=== PATIENT | female | born 1955 | race African-American/Black ===

== ENCOUNTER 2023-12-25 12:05 | Emergency (ER) | payer BC, MEDICAID ==
[~2023-12-25] VITALS: Ht 167.6 cm; Wt 82.0 kg
[~2023-12-25 12:05] MED LIST: ALBU05; BACL-141; FURO-152; HYDR25SU11; IPRA21SP2; OMEP20TA23
[2023-12-25 12:11] VITALS: O2SAT 99
[2023-12-25] MEDS: SODIUM CHLORIDE 0.9% 1,000 ML IV ONE (12:52)
[2023-12-25 12:53] LABS: BASOPHILS % 0.8 % (0.0-2.0); EOSINOPHILS % 6.7 % (0.0-5.0); HEMATOCRIT. 38.3 % (36.0-48.0); HEMOGLOBIN. 12.2 g/dL (12.0-16.0); LYMPHOCYTES % 33.8 % (20.0-50.0); MEAN CORPUSCULAR HEMOGLOBIN 27.1 pg (28.0-32.0); MEAN CORPUSCULAR HGB CONC 31.9 g/dL (31.0-37.0); MEAN CORPUSCULAR VOLUME 85.1 fL (81.0-99.0); MEAN PLATELET VOLUME 7.9 fl (7.4-10.4); MONOCYTES % 8.6 % (2.0-8.0); NEUTROPHILS % 50.1 % (40.0-76.0); PLATELET 280 x1000/uL (130-400); RED CELL DISTRIBUTION WIDTH 13.3 % (11.6-14.6); WHITE BLOOD COUNT 4.9 x1000/uL (4.5-11.0)
[2023-12-25 12:59] LABS: CHLORIDE 108 mEq/L (98-107); SODIUM 141 mEq/L (136-145)
[2023-12-25 13:00] LABS: CARBON DIOXIDE 25 mEq/L (21-32)
[2023-12-25 13:01] LABS: CALCIUM 9.8 mg/dL (8.7-10.4)
[2023-12-25 13:05] LABS: CREATININE 1.3 mg/dL (0.6-1.0); GLUCOSE 91 mg/dL (70-105)
[2023-12-25 13:06] LABS: UREA NITROGEN BLOOD 28 mg/dL (9-23)
[2023-12-25 13:07] LABS: ALANINE AMINOTRANSFERASE 10 IU/L (10-49); ALBUMIN 4.5 g/dL (3.2-4.8); ASPARTATE AMINOTRANSFERASE 16 IU/L (<34); TROPONIN I HIGH SENSITIVITY 30 ng/L (3.0-34)
[2023-12-25 13:08] LABS: BILIRUBIN TOTAL 0.4 mg/dL (0.1-1.0); PROTEIN TOTAL 8.2 g/dL (6.0-8.3)
[2023-12-25 15:30] VITALS: BP 155/57; PULSE 66; RESP 16; TEMP 97.5
[2023-12-25] MEDS ORDERED: DEXT15DR5 OP (20:06)
== END 2023-12-25 15:58 | disposition home or self-care (01) ==
LOC: ER 12:07
DX: R42 Dizziness and giddiness (principal); N17.9 Acute kidney failure, unspecified; J45.909 Unspecified asthma, uncomplicated; I10 Essential (primary) hypertension; Z88.0 Allergy status to penicillin
CPT/HCPCS: 99285; 96360; 70450; 71045; 80053; 83880; 85025; 84484; 36415; 93005; J7030

== ENCOUNTER 2023-12-25 17:08 | Emergency (ER) | payer BC, MEDICAID ==
[~2023-12-25] VITALS: Ht 162.6 cm; Wt 81.6 kg
[2023-12-25 17:21] VITALS: O2SAT 100
[2023-12-25] MEDS ORDERED: DEXT15DR5 OP (20:06)
[2023-12-25 20:18] VITALS: BP 175/68; PULSE 62; RESP 16; TEMP 97.3
== END 2023-12-25 20:57 | disposition home or self-care (01) ==
LOC: ER 17:08
DX: H04.122 Dry eye syndrome of left lacrimal gland (principal); I10 Essential (primary) hypertension; J45.909 Unspecified asthma, uncomplicated; Z79.899 Other long term (current) drug therapy
CPT/HCPCS: 99281